=== PATIENT | male | born 1960 | race Caucasian/White ===

== ENCOUNTER 2018-07-10 12:19 | Outpatient (CLI) | payer OTHER, SELFPAY ==
[2018-07-10 13:38] LABS: Hemoglobin 13.3 g/dL (14.0-18.0); Mean Corpuscular HGB CONC 33.1 g/dL (32.0-36.0); Mean Corpuscular Hemoglobin 29.8 pg (27.0-31.0); Mean Platelet Volume 8.3 fL (7.4-10.4); Platelet Count 177 thou/uL (130-400); RBC Distribution Width 12.2 % (11.5-14.5); Red Blood Cell (RBC) Count 4.47 mill/uL (4.70-6.10)
[2018-07-10 13:57] LABS: Anion Gap 13 mmol/L (10-20); BUN (Urea Nitrogen) 9 mg/dL (8.4-25.7); Calc. Creatinine Clearance 0 mL/min (70-130); Calcium 9.9 mg/dL (7.8-10.44); Carbon Dioxide 26 mmol/L (22-29); Chloride 105 mmol/L (98-107); Estimated GFR-MDRD Greater than 90; Glucose 80 mg/dL (70-105); Potassium 4.2 mmol/L (3.5-5.1); Sodium 140 mmol/L (136-145)
[2018-07-10 14:17] LABS: Free T4 (Free Thyroxine) 0.88 ng/dL (0.70-1.48); Thyroid Stimulating Hormone 1.7235 uIU/mL (0.35-4.94)
== END 2018-07-10 12:20 | disposition home or self-care (01) ==
LOC: LABBT 12:19
PROVIDERS: ATTEND Specialist
DX: R22.1 Localized swelling, mass and lump, neck (principal)
CPT/HCPCS: 80048; 84439; 84443; 84481; 85027; 93005; 93010

== ENCOUNTER 2018-07-11 09:43 | Day surgery (SDC) | payer OTHER ==
[2018-07-10 12:37] VITALS: BMI 26.6
[2018-07-11] MEDS ORDERED: EPINEPHrine 1 MG/ML AMP ONE (10:29)
[2018-07-11] MEDS ORDERED: Midazolam HCl 2 mg/2 ml Vial ONE (10:30)
[2018-07-11] MEDS ORDERED: Fentanyl 100 MCG/2 ML VIAL ONE (11:00)
[2018-07-11] MEDS ORDERED: Succinylcholine Chloride 20 MG/ML 10 ml SYRINGE FS ONE (14:56)
[2018-07-11] MEDS ORDERED: PROPOFOL 200 MG/20 ML VIAL ONE (14:56)
[2018-07-11] MEDS ORDERED: Lidocaine 1% PF 5 ML VIAL ONE (14:56)
--- NOTE | 2018-07-12 13:59 | OP ---
DATE OF PROCEDURE: 07/11/2018 PREOPERATIVE DIAGNOSES: Hoarseness and right arytenoid mass. 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 PROCEDURE PERFORMED: Microsuspension laryngoscopy with biopsy. DESCRIPTION OF PROCEDURE: After consent was obtained, the patient was identified and brought to the operating room, and placed on the operating room table in the supine position. General endotracheal anesthesia was obtained with a John Jet ventilating tube and the patient was positioned for surgery and laryngoscope was suspended. We then under microscopic visualization, visualized the vocal cords and identified a right arytenoid mass with a right dislocated arytenoid cartilage. Also, a hemorrhagic left true vocal cord. The mass was biopsied, sent for histologic evaluation. Topical lidocaine and adrenaline were placed to control bleeding and prevent postop laryngospasm. The patient was awakened, extubated, and taken to the recovery room, remained in stable condition prior to discharge home. Job ID: [id number]
== END 2018-07-11 15:30 | disposition home or self-care (01) ==
LOC: SDC 09:43
PROVIDERS: ATTEND Specialist
PROC: 0CBV8ZX Excision of Left Vocal Cord, Via Natural or Artificial Opening Endoscopic, Diagnostic (ICD-10-PCS; principal; 2018-07-11)
DX: J38.1 Polyp of vocal cord and larynx (principal); J38.7 Other diseases of larynx; K21.9 Gastro-esophageal reflux disease without esophagitis; E78.00 Pure hypercholesterolemia, unspecified; I51.9 Heart disease, unspecified; F17.200 Nicotine dependence, unspecified, uncomplicated; I25.2 Old myocardial infarction; Z79.02 Long term (current) use of antithrombotics/antiplatelets; Z79.82 Long term (current) use of aspirin; Z79.899 Other long term (current) drug therapy; Z95.1 Presence of aortocoronary bypass graft; Z95.5 Presence of coronary angioplasty implant and graft
CPT/HCPCS: 88305; J0171; J1642; J2001; J2250; J2704; J3010